=== PATIENT | female | born 1955 | race Caucasian/White ===

== ENCOUNTER 2022-01-05 16:49 | Inpatient (IN) | payer MEDICARE ==
[~2022-01-05] VITALS: Ht 170.2 cm; Wt 108.4 kg
[~2022-01-05 16:49] MED LIST: COLACE100 MG PO; Calcium Carbonate PO; DIOVAN80 MG PO; DOXYCYCLINE HY100 MG PO; GLYBURIDE-METF1 EAC3 PO; LEVAQUIN500 MG PO; MAGNESIUM OXID400 MG PO; METOCLOPRAMIDE10 MG PO; Multivitamins/Minerals PO; NORVASC5 MG PO; PREDNISONE20 MG PO; PROTONIX40 MG/ML PO; Z.0.AMBIEN10 MG PO; Z.0.ATORVASTATIN CA1 PO; Z.0.DIOVAN40 MG PO; Z.0.FENOFIBRATE160 M PO; Z.0.LEVOTHYROXINE50 PO; Z.0.METOPROLOL TART5 PO; Z.2.VENLAFAXINE HCL7 PO; ZINC SULFATE220 M1 PO; [UNRECOGNIZED DRUG - OTHER]
[2022-01-05] MEDS ORDERED: ASPIRIN 81 MG CHEW TAB PO ONE ×2 (17:30→19:00)
[2022-01-05] MEDS ORDERED: CLONAZEPAM 0.5 MG TAB PO ONE (17:30)
[2022-01-05 17:44] LABS: BASOPHILS % 0.7 % (0.0-1.0); EOSINOPHILS # (AUTO) 0.2 (0.0-0.4); EOSINOPHILS % 3.3 % (0.0-6.0); HEMATOCRIT 42.4 % (34.2-44.1); HEMOGLOBIN 13.8 g/dL (12.0-16.0); LYMPHOCYTES # (AUTO) 1.4 (1.0-3.2); LYMPHOCYTES % 23.5 % (18.0-39.1); MEAN CORPUSCULAR HEMOGLOBIN 27.2 pg (28-32); MEAN CORPUSCULAR HGB CONC 32.5 g/dL (31-35); MEAN CORPUSCULAR VOLUME 83.5 fL (81-99); MONOCYTES # (AUTO) 0.4 (0.2-0.8); MONOCYTES % 7.6 % (4.4-11.3); NEUTROPHILS # (AUTO) 3.8 (2.1-6.9); NEUTROPHILS % 64.4 % (38.7-80.0); PLATELET COUNT 224 x10e3/uL (140-360); RED BLOOD COUNT 5.08 x10e6/uL (3.6-5.1); RED CELL DISTRIBUTION WIDTH 13.5 % (11.7-14.4)
[2022-01-05 18:04] LABS: ALBUMIN 4.2 g/dL (3.5-5.0); ALBUMIN/GLOBULIN RATIO 0.9 (0.8-2.0); ANION GAP 13.5 mmol/L (8-16); CALCIUM 9.7 mg/dL (8.4-10.2); CREATININE, SERUM 1.52 mg/dL (0.57-1.11); POTASSIUM 3.5 mmol/L (3.5-5.1)
[2022-01-05 18:10] LABS: CREATINE KINASE MB 0.9 ng/mL (0-5.0)
[2022-01-05] MEDS ORDERED: Morphine 4mg INJECTION 4 MG/ML INJ IV PRN (19:00)
[2022-01-05] MEDS ORDERED: ONDANSETRON HCL INJ 2MG/ML 2ML 2 MG/ML VIAL IV PRN (19:00)
[2022-01-05] MEDS ORDERED: SODIUM CHLORIDE FLUSH 10 ML SYR INJ PRN (19:00)
[2022-01-06] VITALS (13 sets, daily range): BP systolic 135–170; BP diastolic 71–97
[2022-01-06 02:04] LABS: CREATINE KINASE MB 0.7 ng/mL (0-5.0)
[2022-01-06] MEDS ORDERED: METOPROLOL TARTRATE 50 MG TAB PO SCH (09:00)
[2022-01-06] MEDS ORDERED: ACETAMINOPHEN 325 MG TAB PO PRN (09:00)
[2022-01-06] MEDS ORDERED: ASPIRIN 81 MG ENTERIC COATED PO SCH (09:00)
[2022-01-06] MEDS ORDERED: AMLODIPINE BESYLATE 10 MG TAB PO SCH (09:30)
[2022-01-06] MEDS ORDERED: METOPROLOL TARTRATE 25 MG TAB PO SCH ×2 (09:30→17:00)
[2022-01-06] MEDS ORDERED: LEVOTHYROXINE SODIUM 50 MCG TAB PO SCH (09:30)
[2022-01-06 10:21] LABS: CREATINE KINASE MB 0.8 ng/mL (0-5.0)
[2022-01-06] MEDS: DOCUSATE SODIUM 100 MG CAP PO SCH ×2 (11:01→17:39)
[2022-01-06 11:08] LABS: CHOL/HDL RATIO 5.4 (3.0-3.6)
[2022-01-06] MEDS ORDERED: HYGROTON25 MG PO (11:11)
[2022-01-06] MEDS ORDERED: SERTRALINE HCL100 MG PO (11:11)
[2022-01-06] MEDS ORDERED: BUPROPION XL150 MG PO (11:11)
[2022-01-06] MEDS ORDERED: NIFEDIPINE PO (11:11)
[2022-01-06] MEDS ORDERED: TEMAZEPAM15 MG PO (11:11)
[2022-01-06] MEDS ORDERED: TRAMADOL HCL100 MG PO (11:11)
[2022-01-06] MEDS ORDERED: METFORMIN HCL500 MG PO (11:11)
[2022-01-06] MEDS ORDERED: GLIMEPIRIDE4 MG PO (11:11)
[2022-01-06] MEDS ORDERED: ACTOS15 MG PO (11:11)
[2022-01-06] MEDS ORDERED: SODIUM CHLORIDE 0.9% 1000ML 1,000 ML IV SCH ×2 (11:30→14:30)
[2022-01-06] MEDS ORDERED: VERAPAMIL HCL 2.5 MG/ML 2 ML VIAL ONE (11:35)
[2022-01-06] MEDS ORDERED: HEPARIN SOD (PORCINE) 1000 UNIT/ML 30ML ONE (11:35)
[2022-01-06] MEDS ORDERED: HEPARIN SOD/SOD CHLORIDE 2,000 ML ONE (11:36)
[2022-01-06] MEDS ORDERED: NITROGLYCERIN/D5W 200 MCG/ML 250 ML ONE (11:36)
[2022-01-06] MEDS ORDERED: IOPAMIDOL 370 MG/ML 100 ML INFUS..BTL INJ ONE ×2 (11:36→13:13)
[2022-01-06] MEDS ORDERED: LIDOCAINE HCL 1% LOCAL INJ 20 ML VIAL ONE (11:36)
[2022-01-06] MEDS ORDERED: MIDAZOLAM HCL 2 MG/2 ML VIAL ONE ×2 (11:40→13:05)
[2022-01-06] MEDS ORDERED: FENTANYL CITRATE/PF 100MCG/2 ML INJ ONE (11:41)
[2022-01-06] MEDS ORDERED: DEXTROSE 50% SYRINGE 50 ML IV PRN (11:45)
[2022-01-06] MEDS ORDERED: SODIUM CHLORIDE 0.9% 1000ML 1,000 ML ONE (11:59)
[2022-01-06] MEDS ORDERED: BIVALRIUDIN 250 MG/VIAL VIAL IV ONE (13:17)
[2022-01-06] MEDS ORDERED: ASPIRIN 325 MG TAB ONE (13:29)
[2022-01-06] MEDS ORDERED: CLOPIDOGREL BISULFATE 75 MG TAB ONE (13:29)
[2022-01-06] MEDS: METOPROLOL TARTRATE 25 MG TAB PO SCH (17:40)
[2022-01-06] MEDS: INSULIN REGULAR, HUMAN 100 UNIT/1 ML SQ SCH ×2 (17:54→21:31)
[2022-01-06 18:29] LABS: CREATINE KINASE MB 0.8 ng/mL (0-5.0)
[2022-01-06] MEDS ORDERED: ATORVASTATIN 40 MG TAB PO SCH (21:00)
[2022-01-06] MEDS ORDERED: ZOLPIDEM TARTRATE 10 MG TAB PO SCH (21:00)
[2022-01-06] MEDS ORDERED: TEMAZEPAM 15 MG CAP PO SCH ×2 (21:00)
[2022-01-06] MEDS ORDERED: ATORVASTATIN 10 MG TAB PO SCH (21:00)
[2022-01-07 00:31] VITALS: BP 165/73
[2022-01-07 05:41] VITALS: BP 151/77
[2022-01-07 06:34] LABS: BASOPHILS % 0.6 % (0.0-1.0); EOSINOPHILS # (AUTO) 0.3 (0.0-0.4); EOSINOPHILS % 4.9 % (0.0-6.0); HEMATOCRIT 35.9 % (34.2-44.1); HEMOGLOBIN 11.7 g/dL (12.0-16.0); LYMPHOCYTES # (AUTO) 1.3 (1.0-3.2); LYMPHOCYTES % 24.3 % (18.0-39.1); MEAN CORPUSCULAR HEMOGLOBIN 26.8 pg (28-32); MEAN CORPUSCULAR HGB CONC 32.6 g/dL (31-35); MEAN CORPUSCULAR VOLUME 82.3 fL (81-99); MONOCYTES # (AUTO) 0.4 (0.2-0.8); NEUTROPHILS # (AUTO) 3.2 (2.1-6.9); NEUTROPHILS % 61.8 % (38.7-80.0); PLATELET COUNT 171 x10e3/uL (140-360); RED BLOOD COUNT 4.36 x10e6/uL (3.6-5.1); RED CELL DISTRIBUTION WIDTH 13.5 % (11.7-14.4)
[2022-01-07 07:08] LABS: ALBUMIN 3.6 g/dL (3.5-5.0); ALBUMIN/GLOBULIN RATIO 0.9 (0.8-2.0); ANION GAP 15.4 mmol/L (8-16); CALCIUM 9.1 mg/dL (8.4-10.2); CREATININE, SERUM 1.19 mg/dL (0.57-1.11); POTASSIUM 3.4 mmol/L (3.5-5.1)
[2022-01-07 08:00] VITALS: BP 143/71
[2022-01-07] MEDS: METOPROLOL TARTRATE 25 MG TAB PO SCH (08:43)
[2022-01-07] MEDS: DOCUSATE SODIUM 100 MG CAP PO SCH (08:43)
[2022-01-07] MEDS: INSULIN REGULAR, HUMAN 100 UNIT/1 ML SQ SCH ×2 (08:47→11:55)
[2022-01-07] MEDS ORDERED: ASPIRIN 81 MG CHEW TAB PO SCH (09:00)
[2022-01-07] MEDS ORDERED: NIFEDIPINE CR 30 MG TAB PO SCH (09:00)
[2022-01-07] MEDS ORDERED: PIOGLITAZONE HCL 15 MG TAB PO SCH (09:00)
[2022-01-07] MEDS ORDERED: SERTRALINE HCL 100 MG TAB PO SCH (09:00)
[2022-01-07] MEDS ORDERED: CLOPIDOGREL BISULFATE 75 MG TAB PO SCH (09:00)
[2022-01-07] MEDS ORDERED: ASPIRIN CHEW81 MG PO (11:48)
[2022-01-07] MEDS ORDERED: PLAVIX75 MG PO (11:48)
[2022-01-07 11:55] VITALS: BP 106/81
== END 2022-01-07 13:14 | disposition home or self-care (01) | DRG 247 ==
LOC: ER 16:59 → ERHOLD 18:53 → INTOOBSV 18:53 → MED/SURG2 01-06 08:32 → OBSVTOIN 01-06 13:39
PROVIDERS: ADMIT Internal Medicine; ATTEND Internal Medicine
PROC: 027034Z Dilation of Coronary Artery, One Artery with Drug-eluting Intraluminal Device, Percutaneous Approach (ICD-10-PCS; principal; 2022-01-06)
PROC: 4A023N7 Measurement of Cardiac Sampling and Pressure, Left Heart, Percutaneous Approach (ICD-10-PCS; 2022-01-06)
PROC: B2111ZZ Fluoroscopy of Multiple Coronary Arteries using Low Osmolar Contrast (ICD-10-PCS; 2022-01-06)
PROC: B2151ZZ Fluoroscopy of Left Heart using Low Osmolar Contrast (ICD-10-PCS; 2022-01-06)
DX: I25.110 Atherosclerotic heart disease of native coronary artery with unstable angina pectoris (principal); I10 Essential (primary) hypertension; E78.00 Pure hypercholesterolemia, unspecified; E11.9 Type 2 diabetes mellitus without complications; E66.9 Obesity, unspecified; Z68.37 Body mass index [BMI] 37.0-37.9, adult; F32.A Depression, unspecified; F41.9 Anxiety disorder, unspecified; K21.9 Gastro-esophageal reflux disease without esophagitis; Z88.1 Allergy status to other antibiotic agents; Z88.8 Allergy status to other drugs, medicaments and biological substances; Z82.49 Family history of ischemic heart disease and other diseases of the circulatory system
CPT/HCPCS: 0223U; 36415; 71045; 80053; 80061; 82550; 82553; 82948; 83036; 83880; 84484; 85025; 85379; 92928; 93005; 93306; 93458; 99152; 99153; 99284; C1760; C1769; C1874; C1887; G0378; J0583; J1644; J1817; J2001; J2250; J3010; J7030; Q9967

== ENCOUNTER 2023-10-11 09:22 | Emergency (ER) | payer MEDICARE ==
[~2023-10-11] VITALS: Ht 170.2 cm; Wt 106.8 kg
[~2023-10-11 09:22] MED LIST changes: +ACTOS15 MG PO; +ASPIRIN CHEW81 MG PO; +BUPROPION XL150 MG PO; +GLIMEPIRIDE4 MG PO; +HYGROTON25 MG PO; +METFORMIN HCL500 MG PO; +NIFEDIPINE PO; +PLAVIX75 MG PO; +SERTRALINE HCL100 MG PO; +TEMAZEPAM15 MG PO; +TRAMADOL HCL100 MG PO
[2023-10-11] MEDS ORDERED: DOXYCYCLINE HY100 MG PO (10:12)
[2023-10-11] MEDS ORDERED: CEPHALEXIN500 MG PO (10:12)
[2023-10-11] MEDS ORDERED: MUPIROCIN22 GM TOP (10:12)
[2023-10-11] MEDS: CEFTRIAXONE 1 GM VIAL IM ONE (10:14)
[2023-10-11] MEDS ORDERED: CEFTRIAXONE 1 GM VIAL ONE (10:15)
[2023-10-11 11:23] VITALS: O2SAT 95
== END 2023-10-11 11:23 | disposition home or self-care (01) ==
LOC: FSED 09:27
DX: L03.311 Cellulitis of abdominal wall (principal); B37.2 Candidiasis of skin and nail; I10 Essential (primary) hypertension; E13.65 Other specified diabetes mellitus with hyperglycemia; E66.9 Obesity, unspecified; E78.5 Hyperlipidemia, unspecified; F41.9 Anxiety disorder, unspecified
CPT/HCPCS: 36415; 82948; 99283; J0696

== ENCOUNTER 2023-12-12 22:20 | Emergency (ER) | payer MEDICARE ==
[~2023-12-12] VITALS: Ht 170.2 cm; Wt 113.4 kg
[~2023-12-12 22:20] MED LIST changes: +CEPHALEXIN500 MG PO; +MUPIROCIN22 GM TOP
[2023-12-12] MEDS ORDERED: ACETAMINOPHEN 325 MG TAB ONE (22:42)
[2023-12-12 22:56] LABS: BASOPHILS % 0.7 % (0.0-1.0); EOSINOPHILS # (AUTO) 0.1 (0.0-0.4); EOSINOPHILS % 2.4 % (0.0-6.0); HEMATOCRIT 36.9 % (34.2-44.1); HEMOGLOBIN 11.5 g/dL (12.0-16.0); LYMPHOCYTES # (AUTO) 0.5 (1.0-3.2); LYMPHOCYTES % 9.6 % (18.0-39.1); MEAN CORPUSCULAR HEMOGLOBIN 26.3 pg (28-32); MEAN CORPUSCULAR HGB CONC 31.2 g/dL (31-35); MEAN CORPUSCULAR VOLUME 84.4 fL (81-99); MONOCYTES # (AUTO) 0.5 (0.2-0.8); MONOCYTES % 8.5 % (4.4-11.3); NEUTROPHILS # (AUTO) 4.2 (2.1-6.9); NEUTROPHILS % 77.9 % (38.7-80.0); PLATELET COUNT 164 x10e3/uL (140-360); RED BLOOD COUNT 4.37 x10e6/uL (3.6-5.1); RED CELL DISTRIBUTION WIDTH 14.7 % (11.7-14.4); WHITE BLOOD COUNT 5.42 x10e3/uL (4.8-10.8)
[2023-12-12 23:08] LABS: ALANINE AMINOTRANSFERASE 17 IU/L (0-55); ALBUMIN 4.1 g/dL (3.5-5.0); ALBUMIN/GLOBULIN RATIO 1.1 (0.8-2.0); ALKALINE PHOSPHATASE 78 IU/L (40-150); ANION GAP 26.9 mmol/L (8-16); BILIRUBIN,TOTAL 0.4 mg/dL (0.2-1.2); BLOOD UREA NITROGEN 26 mg/dL (7-26); BUN/CREATININE RATIO 20 (6-25); CALCIUM 9.8 mg/dL (8.4-10.2); CARBON DIOXIDE 12 mmol/L (22-29); CHLORIDE 100 mmol/L (98-107); CREATINE KINASE 41 IU/L (29-168); CREATININE, SERUM 1.31 mg/dL (0.57-1.11); EST GLOMERULAR FILTRATION RATE 45 ML/MIN (>=60); GLUCOSE 188 mg/dL (74-118); POTASSIUM 3.9 mmol/L (3.5-5.1); SODIUM 135 mmol/L (136-145); TOTAL PROTEIN 7.8 g/dL (6.5-8.1)
[2023-12-12] MEDS: ACETAMINOPHEN 325 MG TAB PO STA (23:11)
[2023-12-12] MEDS: ONDANSETRON HCL INJ 2MG/ML 2ML 2 MG/ML VIAL IV STA (23:19)
[2023-12-12] MEDS: SODIUM CHLORIDE 0.9% 1000ML 1,000 ML IV STA (23:20)
[2023-12-12 23:47] LABS: TROPONIN I < 0.001 ng/mL (0-0.300)
[2023-12-13] VITALS: PULSE 72; RESP 15; TEMP 99.7
[2023-12-13] MEDS ORDERED: PREDNISONE20 MG PO (00:24)
[2023-12-13] MEDS ORDERED: VENTOLIN HFA18 GM INH (00:24)
[2023-12-13 01:29] VITALS: BP 152/65; PULSE 71; RESP 17; TEMP 98.2; O2SAT 96
== END 2023-12-13 01:06 | disposition home or self-care (01) ==
LOC: ER 22:24
DX: U07.1 COVID-19 (principal); R06.02 Shortness of breath; N28.9 Disorder of kidney and ureter, unspecified; E11.65 Type 2 diabetes mellitus with hyperglycemia; I10 Essential (primary) hypertension
CPT/HCPCS: 36415; 71045; 80053; 82550; 82948; 83690; 83880; 84484; 85025; 87400; 99284; J2405; J7030; U0002; 93005